=== PATIENT | male | born 1990 | race Caucasian/White ===

== ENCOUNTER 2024-08-21 06:10 | Day surgery (SDC) | payer OTHER ==
[~2024-08-21] VITALS: Ht 182.9 cm; Wt 90.8 kg
[~2024-08-21 06:10] MED LIST: HYDACE5 PO; IBUP400; PRED20 PO
[2024-08-21] MEDS ORDERED: CeFAZolin Sodium 2,000 MG VIAL ONE (06:13)
--- NOTE | 2024-08-21 06:23 | NUR ---
GRANDMOTHER SENSITIVE TO ANESTHESIA, SLOW TO WAKE
[2024-08-21] MEDS ORDERED: TERB250 PO (06:24)
--- NOTE | 2024-08-21 06:32 | NUR ---
08/21/24 0632 Yennifer Bush QUESTION RE: POST OP PAIN MEDICATION
[2024-08-21] MEDS ORDERED: FentaNYL Citrate 50 MCG/ML 2 ML Injection ONE (07:06)
[2024-08-21] MEDS ORDERED: propofoL 20 ML IV ONE (07:06)
[2024-08-21] MEDS ORDERED: Midazolam HCl 1MG / ML 2ML Vial ONE (07:07)
[2024-08-21] MEDS ORDERED: Ondansetron HCl 2 MG / ML 2ML Vial ONE (07:08)
[2024-08-21] MEDS ORDERED: Dexamethasone Sod Phos 10 MG/ML 1ML VIAL ONE (07:08)
[2024-08-21] MEDS ORDERED: NS 500 ML IV ONE (07:25)
[2024-08-21] MEDS ORDERED: Ketorolac Tromethamine 30mg Vial ONE (07:33)
[2024-08-21] MEDS ORDERED: Lidocaine HCl 2% 10 ML SDA INJ ONE (07:47)
--- NOTE | 2024-08-21 08:18 | NUR ---
08/21/24 0818 Cassidy Pope PT TRANSFERRED TO SDU, BROUGHT BACK TO BEDSIDE. PT UP TO RECLINER, STEADY GAIT NOTED. VSS, ON RA. PT DENIES PAIN/NAUSEA. NO VISIBLE SIGNS OF DISTRESS NOTED.
[2024-08-21 08:55] VITALS: BP 136/92
== END 2024-08-21 08:44 | disposition home or self-care (01) ==
LOC: ORSCSDS 06:10
PROVIDERS: Orthopaedic Surgery
PROC: 01Q40ZZ Repair Ulnar Nerve, Open Approach (ICD-10-PCS; principal; 2024-08-21 07:30)
DX: S64.32XA Injury of digital nerve of left thumb, initial encounter (principal); S67.22XA Crushing injury of left hand, initial encounter; S61.012A Laceration without foreign body of left thumb without damage to nail, initial encounter
CPT/HCPCS: J0690; J1100; J1885; J2003; J2250; J2405; J2704; J3010